=== PATIENT | female | born 1950 | race Caucasian/White ===

== ENCOUNTER 2023-02-03 14:33 | Outpatient (RCR) | payer MEDICARE, SELFPAY | END 2023-03-13 10:36 | disposition home or self-care (01) | PROVIDERS: PCP Orthopaedic Surgery; Visit Provider Orthopaedic Surgery | DX: M17.12 Unilateral primary osteoarthritis, left knee (principal); Z96.652 Presence of left artificial knee joint; Z51.89 Encounter for other specified aftercare | CPT/HCPCS: 97110; 97161; 97535 ==

== ENCOUNTER 2023-02-13 06:15 | Day surgery (SDC) | payer MEDICARE, SELFPAY ==
[2023-02-13] VITALS (24 sets, daily range): BP systolic 92–151; BP diastolic 42–86; PULSE 48–92; RESP 14–18; TEMP 35.7–36.8; O2SAT 91–97; BMI 33.5
[2023-02-13] MEDS: LACTATED RINGERS 1000 ML 1,000 ML 100 ML IV ×2 (07:00→09:45)
[2023-02-13] MEDS: SODIUM CHLORIDE 0.9 % (FLUSH) 10 ML SYRINGE IVF (07:00)
[2023-02-13] MEDS: OXYCODONE (CR) 10 MG TAB.ER.12H PO (07:13)
[2023-02-13] MEDS: ACETAMINOPHEN 500 MG TABLET 1000 MG PO ×3 (07:13→18:38)
[2023-02-13] MEDS: CELECOXIB 200 MG CAPSULE PO (07:13)
[2023-02-13] MEDS: MIDAZOLAM HCL 1 MG/ML inj IVP (07:22)
[2023-02-13] MEDS: fentaNYL 100 MCG/2 ML inj IVP (07:22)
--- NOTE | 2023-02-13 07:25 | SUR.PREOP ---
TIME?OUT:?0718 PT/RN/MDA?VERIFICATION?OF?SURGICAL?SITE,?PROCEDURE,?AND?CONSENT OBTAINED?PRIOR?TO?INVASIVE?PROCEDURE. all in agreement.
[2023-02-13] MEDS: CEFAZOLIN 2 GM INJ IVP (07:54)
[2023-02-13] MEDS: TRANEXAMIC ACID 100 MG/ML INJ 1000 MG IV (07:55)
--- NOTE | 2023-02-13 08:43 | P.NB_ITS ---
Nerve Block Nerve Block Time Seen by Provider: 08:44 Date Seen: 02/13/23 Type of block requested by surgeon for post-operative analgesia: geniculars Side: left Time out performed: Yes Verification of patient name: Yes Verification of date of : Yes Site marking: site marked Name of person performing procedure: Pierre Continuous monitoring Was continuous monitoring of O2 sat, B/P, alarm security or surveillance monitor, recorded every 15 minutes?: Yes Procedure Checklist: sterile prep, needles and gloves Medications given in 5ml increments after negative aspiration: Ropivicaine %: 0.5 mL: 9 Needle gauge: 25 Patient tolerated procedure well: Yes Block Charges Block Charge (with Pro Fee): Genicular Nerve Block Use of Ultrasound Machine for Block: No
--- NOTE | 2023-02-13 08:43 | W.PM.NB ---
Nerve Block Nerve Block Time Seen by Provider: 07:27 Date Seen: 02/13/23 Type of block requested by surgeon for post-operative analgesia: adductor canal Side: left Time out performed: Yes Verification of patient name: Yes Verification of date of : Yes Site marking: site marked Name of person performing procedure: Pierre Continuous monitoring Was continuous monitoring of O2 sat, B/P, monitoring analyst, recorded every 15 minutes?: Yes Procedure Checklist: sterile prep, needles and gloves Ultrasound guided. Images saved: Yes Medications given in 5ml increments after negative aspiration: Ropivicaine %: 0.5 mL: 20 Needle gauge: 20 Decadron (mg): 10 Precedex (mcg): 25 Patient tolerated procedure well: Yes Additional comments: Needle noted adjacent to nerve Block Charges Block Charge (with Pro Fee): Femoral Nerve Use of Ultrasound Machine for Block: Yes- US Guidance/pain block
--- NOTE | 2023-02-13 08:44 | W.ANESCHARGE ---
Anesthesia Charges Start Date/Time Anesthesia Start Date: 02/13/23 Anesthesia Start Time: 07:46 Stop Date/Time Anesthesia Stop Date: 02/13/23 Anesthesia Stop Time: 10:06 Summary Extremes of Age - Over 70 or under 1: MDA
--- NOTE | 2023-02-13 09:09 | CRLHL7_ITS ---
For Patients: As a result of the Cures Act, medical imaging exams and procedure reports are released immediately into your electronic medical record. You may view this report before your referring provider. If you have questions, please contact your health care provider. Indication: Postop Technique: Two views left knee Findings/Impression: Hardware from a left total knee arthroplasty is in satisfactory position. Bone alignment is normal. No sign of acute fracture. Postop changes are within normal limits. Dictated by Ganga Briseno MD @ 02/13/2023 10:39:18 AM (Electronically Signed)
--- NOTE | 2023-02-13 09:11 | PM.ORPRC ---
Procedure Note Date of procedure: 02/13/23 Procedure: PREOPERATIVE DIAGNOSIS: Left knee osteoarthritis POSTOPERATIVE DIAGNOSIS: Left knee osteoarthritis NAME OF OPERATION: Left total knee arthroplasty SURGEON: Evangelista Avery MD COMPRESSOR HOUSE OPERATOR: Gabriela Jones PA-C ANESTHESIA: Spinal ESTIMATED BLOOD LOSS: 0 mL COMPLICATIONS: None SPECIMENS: None DRAINS: None PREOPERATIVE ANTIBIOTICS: Ancef 2 grams IMPLANTS: 1. J&J Attune # 5 posterior stabilized femur 2. #4 fixed-bearing tibia, with a 14 mm x 50 mm cemented stem 3. # 5 posterior stabilized, 5 mm fixed-bearing polyethylene 4. 38 patella INDICATIONS: The patient is a 72-year-old with a longstanding history of severe, unrelenting left knee pain secondary to end-stage (grade IV) left knee osteoarthritis. Despite appropriate nonoperative management, including activity modification, anti-inflammatories, [id number]-[id number] pain medication, bracing, physical therapy, and injections they continue to have pain and disability. Operative intervention was offered. The risks, benefits and expected outcomes were discussed in detail. These included but were not limited to: Infection, bleeding, injury to blood vessel or nerve, venous thromboembolism. All questions were answered to their satisfaction. Use of an assistant bookkeeper was necessary throughout the case for patient positioning and safety, soft tissue retraction, and closure. PROCEDURE: Spinal anesthesia was administered. The patient was placed supine on the operating table. The assistant bookkeeper made sure the patient was positioned appropriately. The lower extremity was prepped and draped in the usual sterile fashion. The limb was exsanguinated with the Vasquez bandage. The pneumatic tourniquet was inflated to 300 mmHg. A standard anterior incision was made with the knee in flexion. Subcutaneous dissection was sharply taken through fascial layer #1. Full-thickness medial and lateral flaps were elevated. The assistant bookkeeper retracted the soft tissues and protected them throughout the case. A standard medial parapatellar approach was made. The patella was everted. The infrapatellar fat pad was preserved. The menisci and cruciate ligaments were sharply d?brided. Marginal osteophytes were d?brided with the rongeur. The drill was used to penetrate the femoral canal. The canal was aspirated and irrigated with pulse lavage. The intramedullary femoral guide was placed for a 5-degree valgus cut, removing 10 mm off the distal femur. The saw was used to make the cut. Whitesides line and the trans epicondylar axis were marked. The femoral sizing guide was pinned onto the distal femur. Three degrees of external rotation nicely parallels the transepicondylar axis. Pins were placed for posterior referencing. The four-in-one cutting guide was pinned onto the distal femur. The anterior, posterior, and chamfer cuts were made. The assistant bookkeeper protected the collateral ligaments. The box cutting guide was pinned. The box cuts were made. The boxed trial was placed and was an excellent fit. Drill holes for the lugs were made. Attention was then turned to the proximal tibia. The extramedullary tibial guide was placed for a neutral varus/valgus cut with 5 degrees of posterior slope, removing 2 mm based off the medial tibial surface. The assistant bookkeeper protected the collateral ligaments and the neurovascular bundle. The saw was used to make the cut. Trial components were placed. The knee was nicely balanced in both flexion and extension. The trial components were removed. The tray was placed in appropriate rotation, parallel to our tibial cutting pins. It was pinned by the assistant bookkeeper and the drill and the punch were used. The tray was removed. The punch was used again. We placed a bone plug in the femoral canal. Attention was then turned to the patella. [place] patellar thickness was 20.5 mm. The lobster claw resection guide was used with the 7.5 mm [place]. The saw was used to make the cut. Drill holes were made by the assistant bookkeeper. The trial was placed and was an excellent fit. Cancellous surfaces were irrigated with pulse lavage and thoroughly dried by the assistant bookkeeper. We cemented the tibial component, then the femoral component. We impacted the 5 mm polyethylene onto the tibial tray. The knee was brought into full extension. We then cemented the patellar component. Excessive cement was removed. The cement was allowed to harden. The knee was taken through a range of motion and was found to be nicely balanced in both flexion and extension. The patella tracks centrally. The assistant bookkeeper did a three minute dilute Betadine solution soak. The assistant bookkeeper irrigated the wound with 3 liters of normal saline via pulse lavage. The assistant bookkeeper reapproximated the extensor mechanism with #1 Vicryl in an interrupted [id number]-md-[id number] fashion. The assistant bookkeeper then ran the extensor mechanism with a #1 PDO Stratafix. The assistant bookkeeper closed the subcutaneous tissues with a 3-0 Stratafix and the skin with a running 3-0 Stratafix in a subcuticular fashion. Glue was used to seal the skin. The assistant bookkeeper placed a dry dressing, NEELAM stocking, and Polar Care. Sponge and needle counts were correct x2. The patient tolerated the procedure well. There were no apparent complications. They were carefully transferred to the hospital bed and taken to the postanesthesia care unit in satisfactory condition. PLAN: The patient will be mobilized with physical therapy. Aspirin will be used for DVT prophylaxis. They will be discharged to home once medically appropriate.
--- NOTE | 2023-02-13 10:16 | P.ANES_ITS ---
Anesthesia Charges Start Date/Time Anesthesia Start Date: 02/13/23 Anesthesia Start Time: 07:46 Stop Date/Time Anesthesia Stop Date: 02/13/23 Anesthesia Stop Time: 10:06 Summary Extremes of Age - Over 70 or under 1: PARAPROFESSIONAL INTERPRETER
--- NOTE | 2023-02-13 11:44 | PM.IMCN1 ---
Date of Consult Patient: Other Consult date: 02/13/23 Requesting Physician: Orthopedics Primary Care Provider: Homa Edouard NP Consult Narrative Reason for consult: Medical management of comorbidities Narrative: Berta Jennings is a 72 year old female who presented to the hospital today for an elective L TKA. There were no surgical or anesthetic complications noted during procedure. Patient's H&P reviewed, PCP is Homa Edouard NP with [facility]. Past medical history significant for: CARLOS, LBBB, mild LVH on 2020 EKG and TTE. Patient on no prescription medications. History of blood clots: No. Has had blood tranfusions in the past (once after molar , once after a hemorrhage). Postoperative plan: home with ([facility]). Review of Systems Status of ROS: Reports: 10 or more systems reviewed and unremarkable except as noted in History and below [facility] Medical History (Updated 02/13/23 @ 11:50 by Kimberly Sutton MD) Cancer of the skin, basal cell ?C44.91 - Basal cell carcinoma of skin, unspecified (ICD-10) CARLOS (obstructive sleep apnea) ?G47.33 - Obstructive sleep apnea (adult) (pediatric) (ICD-10) Left bundle branch block ?I44.7 - Left bundle-branch block, unspecified (ICD-10) Surgical History (Updated 02/12/23 @ 10:01 by Anabela Toth RN) Hx of sinus surgery ?Z98.890 - Other specified postprocedural states (ICD-10) Hx of dilation and curettage ?Z98.890 - Other specified postprocedural states (ICD-10) History of intraocular lens implant (~2020) ?Z96.1 - Presence of intraocular lens (ICD-10) History of cholecystectomy (1992) ?Z90.49 - Acquired absence of other specified parts of digestive tract (ICD-10) H/O: hysterectomy (1991) ?Z90.710 - Acquired absence of both cervix and uterus (ICD-10) History of appendectomy (1968) ?Z90.49 - Acquired absence of other specified parts of digestive tract (ICD-10) Family History (Updated 01/28/23 @ 09:42 by Jessa Payton RN) Mother Hyperlipidemia High blood pressure Father Myocardial infarction Stroke Brother Sleep apnea Pacemaker Cardiomyopathy Degenerative mitral valve prolapse High blood pressure Left bundle branch block Sister Asthma Social History (Updated 02/13/23 @ 11:51 by Kimberly Sutton MD) Narrative: Retired bank accountant, 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 2 grown sons. Quit smoking 2003. Smoking Status: Former smoker What tobacco products do you use: cigarettes Smoking packs per day: 0.5 Smoking cigarettes per day: 10.0 Years smoked: 35 Smoking pack-years: 17.50 Smoking quit date/years: >15 years ago Do you use any of these nicotine containing products: None Second hand tobacco smoke exposure: No How often do you have a drink containing alcohol: 2-3 times a week Alcohol type: beer How many standard drinks containing alcohol do you have on a typical day: 3 or 4 How often do you have six or more drinks on one occasion: Never AUDIT-C Alcohol total score: 4 Non-prescribed substance use: denies use Caffeine: Yes (occ pop) Meds Home Medications and Allergies Home Medications Medication Instructions Recorded Confirmed Type No Known Home Medications 12/23/22 12/23/22 History Allergies Allergy/AdvReac Type Severity Reaction Status Date / Time No Known Drug Allergies Allergy Unverified 12/23/22 10:07 Exam Narrative: Exam Narrative: GEN: Alert and oriented, nontoxic HEENT: EOMIs bilaterally, no scleral icterus CV: Sinus bradycardia, no concerning M/R/G R: LCTA bilaterally without concerning wheezing, air movement adequate Ext: wearing Leonardo hose bilaterally Skin: No concerning skin lesions or rashes on exposed skin Neuro: Nonfocal Psych: Appropriate Const: Vital Signs, click to edit/add: Vital Signs - 24 hr 02/13/23 07:08 02/13/23 07:25 02/13/23 07:28 Temperature 97.6 F Pulse Rate 61 57 L 53 L Pulse Rate [Left P ulse Oximeter] Respiratory Rate 16 16 14 Blood Pressure 147/84 H 142/82 H 133/80 Blood Pressure [Ri ght Arm] Pulse Oximetry 95 96 96 Oxygen Delivery Me thod Room Air Nasal Cannula Nasal Cannula Oxygen Flow Rate 2 2 02/13/23 10:01 02/13/23 10:05 02/13/23 10:10 Temperature 97.3 F L Pulse Rate 65 62 59 L Pulse Rate [Left P ulse Oximeter] Respiratory Rate 16 18 16 Blood Pressure 92/42 L 96/53 L 99/55 L Blood Pressure [Ri ght Arm] Pulse Oximetry 94 93 95 Oxygen Delivery Me thod Room Air Room Air Room Air Oxygen Flow Rate 02/13/23 10:15 02/13/23 10:20 02/13/23 10:25 Temperature 97.4 F L Pulse Rate 56 L 60 55 L Pulse Rate [Left P ulse Oximeter] Respiratory Rate 14 16 16 Blood Pressure 107/57 L 114/65 113/61 Blood Pressure [Ri ght Arm] Pulse Oximetry 94 94 96 Oxygen Delivery Me thod Room Air Room Air Room Air Oxygen Flow Rate 02/13/23 10:30 02/13/23 10:38 02/13/23 10:45 Temperature 97.4 F L 96.6 F L 96.5 F L Pulse Rate 55 L 53 L Pulse Rate [Left P ulse Oximeter] 52 L Respiratory Rate 14 14 14 Blood Pressure 113/62 Blood Pressure [Ri ght Arm] 105/68 109/63 Pulse Oximetry 94 96 Oxygen Delivery Wa thod Room Air Room Air Room Air Oxygen Flow Rate 02/13/23 11:00 02/13/23 11:15 02/13/23 11:30 Temperature 96.5 F L 96.5 F L 96.5 F L Pulse Rate Pulse Rate [Left P ulse Oximeter] 51 L 48 L 51 L Respiratory Rate 14 16 16 Blood Pressure Blood Pressure [Ri ght Arm] 107/57 L 103/65 116/65 Pulse Oximetry 95 92 95 Oxygen Delivery Me thod Room Air Room Air Room Air Oxygen Flow Rate 0 0 0 Assessment and Plan Assessment and plan (1) Osteoarthritis of left knee: Problem comment: - s/p L TKA with Dr. Avery 02/13 Status: Acute (2) Bradycardia: Problem comment: - pulse 50s postoperatively; 60s upon arrival preoperatively. Patient asymptomatic - on chart review, previous outpatient pulse 70-80s - noted to have LBBB on 2020 EKG per chart review with the below TTE in 2020 (no evidence of Cardiology f/u): Final Impressions 1. Normal left ventricular chamber size, calculated 2-D biplane volumetric ejection fraction 66 %. 2. Abnormal ventricular septal motion due to conduction. 3. Abnormal left ventricular geometry with concentric left ventricular hypertrophy, normal diastolic function. 4. Normal right ventricular chamber size, normal systolic function, estimated right ventricular systolic pressure 28 mmHg assuming right atrial pressure of 5 mmHg. 5. No significant valvular heart disease. 6. Normal inferior vena cava size with normal inspiratory collapse (>50%). 7. No pericardial effusion. Status: Acute Plan - pain management and prophylaxis per orthopedic surgery team - continue to follow comorbidities - anticipate routine postoperative course
[2023-02-13] MEDS: CEFAZOLIN 2 GM in 0.9 % SODIUM CHLORIDE Mini-bag 100 ML IVPB ×2 (14:58→21:30)
[2023-02-13] MEDS: OXYCODONE 5 MG TABLET PO (15:57)
--- NOTE | 2023-02-13 18:07 | PC.NURSE ---
Pt alert and oriented. Pt pleasant and cooperative. Pt bradycardic hospitalist notified no intervention needed. Pt assist of one with walker and gait belt. Pt voided. Pt advanced to regular diet and tolerating well. Pt saline locked. Pt?s cryocuff refilled with ice at 1640. Pt had pain ranging from 0-4 during shift see EMAR for intervention. ?
[2023-02-13] MEDS: ASPIRIN 81 MG TABLET EC PO (21:30)
[2023-02-13] MEDS: SENNOSIDES 1 TAB TABLET 2 TAB PO (21:30)
[2023-02-14] MEDS: ACETAMINOPHEN 500 MG TABLET 1000 MG PO ×2 (01:23→07:38)
[2023-02-14 03:00] VITALS: BP 117/60; PULSE 87; RESP 16; TEMP 36.8; O2SAT 94
--- NOTE | 2023-02-14 05:53 | PC.NURSE ---
End of Shift: Patient pleasant and cooperative throughout shift, pain well-controlled with tylenol and ice steady at a 3/10. Pt ambulating well with walker, gait belt and SBA. Pt continent with bladder, no BM throughout shift.
[2023-02-14] MEDS: OXYCODONE 5 MG TABLET PO ×2 (06:36→08:12)
[2023-02-14 06:37] LABS: Potassium* 4.2 mmol/L (3.6-5.1); Sodium* 137 mmol/L (135-149)
[2023-02-14 06:40] LABS: Blood Urea Nitrogen* 17 mg/dL (7-30); Creatinine* 0.6 mg/dL (0.5-1.5); Est. Creatinine Clearance* 39.63; Estimated Glomerular Filt Rate 95 ml/min
[2023-02-14 06:42] LABS: Basophils Percent Auto 0.1 % (0.0-3.0); Hematocrit 37.2 % (33.0-51.0); Hemoglobin* 12.7 gm/dL (12.0-16.0); Immature Granulocytes Pct Auto 1.3 %; Lymphocytes Percent Auto 11.8 % (20-44); Mean Corpuscular HGB Conc 34 gm/dL (32-36); Mean Corpuscular Hemoglobin 32 pg (26-34); Mean Corpuscular Volume 93 fL (80-100); Neutrophils Percent Auto 80.8 % (42.0-72.0); Platelet Count* 307 K/uL (140-440); RDW Coefficient of Variation % 12.4 % (11.5-15.5); White Blood Count* 13.61 K/uL (4.50-11.00)
[2023-02-14 06:43] LABS: Slide Review Reflex No
[2023-02-14 06:46] LABS: INR 1.13 (0.91-1.10); Prothrombin Time 15.2 Seconds
[2023-02-14 07:00] VITALS: O2SAT 97
[2023-02-14 07:44] VITALS: BP 139/75; PULSE 56; RESP 16; TEMP 36.5; O2SAT 97
--- NOTE | 2023-02-14 09:05 | PM.ORPN ---
Subjective Subjective Time Seen by Provider: 07:30 Date Seen: 02/14/23 Principal diagnosis: Day 1 s/p left TKA Interval history: Berta is doing well this morning and is resting comfortably in her recliner, accompanied by her . Denies knee pain at rest. Moderate knee pain with ambulation and transferring. Pain is well managed with current scheduled and PRN oral pain medications and ice. Denies: fever, chills, body aches, chest pain, SOB. No acute concerns. Patient slept well last night. Outpatient physical therapy scheduled to begin 02/17 in [place] with Aki Rowell. Patient feels ready to be discharged to home later this morning. Ortho Exam Narrative Exam Narrative: Incision/Dressing: Dressing appears clean and dry. No drainage present. Mepilex intact. Left knee appears moderately swollen but supple with no obvious erythema, fluctuance or excessive warmth. No ecchymosis or erythematous streaking. Warmth around the wound is appropriate. Ice is being utilized as needed. CMS: Intact distally with 2+ Dorsalis pedis and Posterior Tibial pulses. 5/5 motor strength dorsal and plantar flexion. Confirmed sensation distally. Intact straight leg raise. Calf: Bilateral calves are supple, with no swelling, pain, tenderness, erythema, discoloration or coolness to the touch. Constitutional: Patient is alert and oriented x3. Patient is in no acute distress and converses without labored breathing. Patient is able to make decisions and demonstrates good insight. Patient is pleasant and cooperative. Affect is full range and appropriate for the circumstances. Const Vital Signs, click to edit/add: Vital Signs - 24 hr 02/13/23 10:01 02/13/23 10:05 02/13/23 10:10 Temperature 97.3 F L Pulse Rate 65 62 59 L Pulse Rate [Left Pulse Oximeter] Respiratory Rate 16 18 16 Blood Pressure 92/42 L 96/53 L 99/55 L Blood Pressure [Right Arm] Pulse Oximetry 94 93 95 Oxygen Delivery Method Room Air Room Air Room Air Oxygen Flow Rate 02/13/23 10:15 02/13/23 10:20 02/13/23 10:25 Temperature 97.4 F L Pulse Rate 56 L 60 55 L Pulse Rate [Left Pulse Oximeter] Respiratory Rate 14 16 16 Blood Pressure 107/57 L 114/65 113/61 Blood Pressure [Right Arm] Pulse Oximetry 94 94 96 Oxygen Delivery Method Room Air Room Air Room Air Oxygen Flow Rate 02/13/23 10:30 02/13/23 10:38 02/13/23 10:45 Temperature 97.4 F L 96.6 F L 96.5 F L Pulse Rate 55 L 53 L Pulse Rate [Left Pulse Oximeter] 52 L Respiratory Rate 14 14 14 Blood Pressure 113/62 Blood Pressure [Right Arm] 105/68 109/63 Pulse Oximetry 94 96 Oxygen Delivery Method Room Air Room Air Room Air Oxygen Flow Rate 02/13/23 11:00 02/13/23 11:15 02/13/23 11:30 Temperature 96.5 F L 96.5 F L 96.5 F L Pulse Rate Pulse Rate [Left Pulse Oximeter] 51 L 48 L 51 L Respiratory Rate 14 16 16 Blood Pressure Blood Pressure [Right Arm] 107/57 L 103/65 116/65 Pulse Oximetry 95 92 95 Oxygen Delivery Method Room Air Room Air Room Air Oxygen Flow Rate 0 0 0 02/13/23 12:00 02/13/23 12:30 02/13/23 12:30 Temperature 96.3 F L 96.5 F L 96.5 F L Pulse Rate Pulse Rate [Left Pulse Oximeter] 53 L 54 L 54 L Respiratory Rate 16 16 16 Blood Pressure Blood Pressure [Right Arm] 95/62 101/60 101/60 Pulse Oximetry 97 95 95 Oxygen Delivery Method Room Air Room Air Room Air Oxygen Flow Rate 0 0 0 02/13/23 13:30 02/13/23 14:30 02/13/23 15:30 Temperature 96.5 F L 97.0 F L 97.0 F L Pulse Rate Pulse Rate [Left Pulse Oximeter] 52 L 72 75 Respiratory Rate 16 16 16 Blood Pressure Blood Pressure [Right Arm] 136/86 124/72 151/76 H Pulse Oximetry 96 94 95 Oxygen Delivery Method Room Air Room Air Room Air Oxygen Flow Rate 0 0 0 02/13/23 16:30 02/13/23 16:46 02/13/23 19:00 Temperature 97.1 F L 97.4 F L Pulse Rate Pulse Rate [Left Pulse Oximeter] 67 89 Respiratory Rate 16 16 Blood Pressure Blood Pressure [Right Arm] 135/71 134/70 Pulse Oximetry 96 96 94 Oxygen Delivery Method Room Air Room Air Oxygen Flow Rate 0 02/13/23 23:00 02/13/23 23:00 08/03/23 23:00 Temperature 98.2 F Pulse Rate Pulse Rate [Left Pulse Oximeter] 91 92 Respiratory Rate 16 16 Blood Pressure Blood Pressure [Right Arm] 125/73 Pulse Oximetry 92 91 Oxygen Delivery Method Room Air Oxygen Flow Rate 0 02/14/23 03:00 02/14/23 07:44 Temperature 98.2 F 97.7 F Pulse Rate Pulse Rate [Left Pulse Oximeter] 87 56 L Respiratory Rate 16 16 Blood Pressure Blood Pressure [Right Arm] 117/60 139/75 Pulse Oximetry 94 97 Oxygen Delivery Method Room Air Room Air Oxygen Flow Rate Assessment and Plan Assessment and plan (1) Osteoarthritis of left knee: Problem details: Day 1 s/p left TKA (Dr. Avery: 02/13/23) Status: Acute Assessment and Plan: - Complete 23 hour perioperative antibiotics. - PT/OT consults for education and assistance. Outpatient physical therapy scheduled to begin 02/17 in [place]. - Weight bear as tolerated with a walker for assistance. - Prescribed analgesics as needed. Patient is content with current narcotic medications. Minimize narcotic pain medication use; wean off and discontinue as soon as possible. - DVT prophylaxis: aspirin 81 mg BID x 30 days. Also bilateral knee high Leonardo stockings (x 1 month), frequent ambulation and ankle pumps when sedentary. - Social consult for discharge planning. - Anticipate patient will be discharged to home this morning if the patient remains medically stable, pain is controlled and is safe with ambulation. - Return to clinic in 1 week for a wound check with [facility]. Mepilex dressing will be removed at this appointment. Remove sooner if dressing becomes saturated. - Return to clinic in [address] Avery. - Phone Orthopedics with any questions or concerns. [phone]
[2023-02-14] MEDS: ASPIRIN 81 MG TABLET EC PO (09:16)
--- NOTE | 2023-02-14 11:14 | PC.NURSE ---
shift note: vss stable. pt afeb. drsg to lt knee c/d/i. non pitting swelling on lt knee. cms intact. PP+ bilat. Pt has cryo cuff in place while in recliner. Pt medicated with oxycodone prior to therapy this a.m with pain 4-5/10 lt knee. Pt stated pain relieved with medications. Reviewed dc instructions with pt prior to dc. Copies of dc sent with pt. Belongings reviewed and sent with pt at dc. Reviewed DVT precautions, cryo cuff and pain scale prior to pt dc. IV dc'd intact LT hand.
== END 2023-02-14 10:30 | disposition home or self-care (01) ==
LOC: OR 06:17 → MEDSURG 06:48
PROVIDERS: PCP Registered Nurse; Visit Provider Orthopaedic Surgery
PROC: (CPT 27447; principal; 2023-02-13 07:45)
DX: M17.12 Unilateral primary osteoarthritis, left knee (principal); G89.18 Other acute postprocedural pain; G47.33 Obstructive sleep apnea (adult) (pediatric); R00.1 Bradycardia, unspecified
CPT/HCPCS: 27447; 01402; 36415; 64447; 64454; 73560; 76942; 82565; 84132; 84295; 84520; 85025; 85610; 97110; 97116; 97161; 97165; 97535; 99100; A9270; C1776; J0690; J1100; J2250; J2405; J2704; J2795; J3010; J7120